=== PATIENT | male | born 1950 | race Caucasian/White ===

== ENCOUNTER 2019-06-04 11:50 | Outpatient (CLI) | payer MEDICARE ==
[2019-06-04 15:11] LABS: INR-International Normal Ratio 1.1; Prothrombin Time 13.7 SEC (12.0-14.7)
[2019-06-04 15:16] LABS: #Eosinphils 0.1 thou/uL (0.0-0.7); #Lymphocytes 2.1 thou/uL (1.20-3.40); #Monocytes 0.8 thou/uL (0.11-0.59); #Neutrophils 6.7 thou/uL (1.40-6.50); %Basophils 0.4 % (0.0-1.0); %Eosinophils 1.2 % (0.0-10.0); %Lymphocytes 21.4 % (21.0-51.0); %Monocytes 8.5 % (0.0-10.0); %Neutrophils 68.5 % (42.0-75.0); Hemoglobin 12.6 g/dL (14.0-18.0); Mean Corpuscular HGB CONC 32.7 g/dL (32.0-36.0); Mean Corpuscular Hemoglobin 30.3 pg (27.0-31.0); Mean Corpuscular Volume 92.7 fL (78.0-98.0); Mean Platelet Volume 6.9 fL (7.4-10.4); Platelet Count 382 thou/uL (130-400); RBC Distribution Width 12.7 % (11.5-14.5); Red Blood Cell (RBC) Count 4.14 mill/uL (4.70-6.10); White Blood Cell (WBC) Count 9.8 thou/uL (4.8-10.8)
[2019-06-04 15:25] LABS: Anion Gap 12 mmol/L (10-20); BUN (Urea Nitrogen) 18 mg/dL (8.4-25.7); Calc. Creatinine Clearance 0 mL/min (70-130); Calcium 9.5 mg/dL (7.8-10.44); Carbon Dioxide 28 mmol/L (23-31); Chloride 87 mmol/L (98-107); Estimated GFR-MDRD 77; Glucose 84 mg/dL (80-115); Potassium 3.9 mmol/L (3.5-5.1); Sodium 123 mmol/L (136-145)
--- NOTE | 2019-06-06 13:40 | EKG ---
Test Reason : Blood Pressure : / mmHG Vent. Rate : 071 BPM Atrial Rate : 071 BPM P-R Int : 176 ms QRS Dur : 088 ms QT Int : 394 ms P-R-T Axes : 059 110 008 degrees QTc Int : 428 ms Sinus rhythm with occasional Premature ventricular complexes Left posterior fascicular block Anterior infarct , age undetermined Abnormal ECG When compared with ECG of 17-MAY-2012 14:18, Left posterior fascicular block is now Present Anterior infarct is now Present T wave inversion now evident in Inferior leads Confirmed by FREIDA MORELOS (2) on 06/06/2019 1:39:51 PM Referred By: JENNIFER Confirmed By:FREIDA MORELOS
== END 2019-06-04 11:51 | disposition home or self-care (01) ==
LOC: LABBT 11:50
PROVIDERS: ATTEND Orthopaedic Surgery
DX: Z01.818 Encounter for other preprocedural examination (principal); T84.011A Broken internal left hip prosthesis, initial encounter
CPT/HCPCS: 80048; 85025; 85610; 87081; 93005; 93010

== ENCOUNTER 2019-06-04 13:30 | Inpatient (IN) | payer MEDICARE ==
[2019-06-07] MEDS ORDERED: Sodium Chloride 0.9% 100 ML ONE (07:35)
[2019-06-07] MEDS ORDERED: Tranexamic Acid 1,000 MG/10 ML VIAL ONE (07:35)
[2019-06-07 08:08] LABS: Bacteria/HPF None Seen HPF (None Seen); Bilirubin Negative (Negative); Blood, Urine Negative (Negative); Clarity Clear (Clear); Glucose, Urine (Dipstick) Normal (Negative); Leukocyte Negative Leu/uL (Negative); Nitrite Negative (Negative); Protein, Urine (Dipstick) 10 mg/dL (Neg-Trace); RBC/HPF 0-3 HPF (0-3); Squamous Epithelial None Seen HPF (0-3); Urobilinogen Normal mg/dL (Less than 2); WBC/HPF 0-3 HPF (0-3)
[2019-06-07 08:09] LABS: Anion Gap 11 mmol/L (10-20); BUN (Urea Nitrogen) 23 mg/dL (8.4-25.7); Calc. Creatinine Clearance 61 mL/min (70-130); Calcium 9.2 mg/dL (7.8-10.44); Carbon Dioxide 27 mmol/L (23-31); Chloride 92 mmol/L (98-107); Estimated GFR-MDRD 61; Glucose 77 mg/dL (80-115); Potassium 3.9 mmol/L (3.5-5.1); Sodium 126 mmol/L (136-145)
[2019-06-07] MEDS ORDERED: Fentanyl 100 MCG/2 ML VIAL SLOW IVP PRN ×2 (08:24)
[2019-06-07] MEDS ORDERED: diphenhydrAMINE 25 MG CAP PO PRN ×2 (08:24→09:30)
[2019-06-07] MEDS ORDERED: Zolpidem Tartrate 5 MG TAB PO PRN ×2 (08:24→09:30)
[2019-06-07] MEDS ORDERED: HYDROcodone/Acetaminophen 10/325 mg Tablet PO PRN ×2 (08:24)
[2019-06-07] MEDS ORDERED: Promethazine HCl 25 MG/ML VIAL IM PRN ×3 (08:24→11:16)
[2019-06-07] MEDS ORDERED: Ondansetron PF 4 MG/2 ML Vial IVP PRN ×2 (08:24→09:30)
[2019-06-07] MEDS ORDERED: Acetaminophen 325 MG TAB PO PRN (08:24)
[2019-06-07] MEDS ORDERED: CEFAZOLIN 2 GM in Premix Bag 1 BAG IVPB SCH (08:30)
[2019-06-07] MEDS ORDERED: Ropivacaine 0.2% HCl/PF 20 ML ONE (08:32)
[2019-06-07] MEDS ORDERED: Fentanyl 100 MCG/2 ML VIAL ONE (08:39)
[2019-06-07] MEDS ORDERED: Acetaminophen 500 MG TAB PO PRN (09:25)
[2019-06-07] MEDS ORDERED: diphenhydrAMINE 50 MG/ML VIAL IVP PRN (09:30)
[2019-06-07] MEDS ORDERED: Naloxone HCl 0.4 mg/ml Vial IVP PRN (09:30)
[2019-06-07] MEDS ORDERED: Naloxone HCl 0.4 mg/ml Vial IV PRN (09:30)
[2019-06-07] MEDS ORDERED: diphenhydrAMINE 50 MG/ML VIAL IM PRN (09:30)
[2019-06-07] MEDS ORDERED: Hydrocerin (Eucerin) Cream 120 gm Jar TOP PRN (09:30)
[2019-06-07] MEDS ORDERED: Bupivacaine 0.25% 10 ML VIAL EPIDURAL PRN (09:30)
[2019-06-07] MEDS ORDERED: HYDROcodone/Acetaminophen 5/325 mg Tablet PO PRN (09:30)
[2019-06-07] MEDS ORDERED: traMADol HCl 50 MG TAB PO PRN ×2 (09:30)
[2019-06-07] MEDS ORDERED: Promethazine HCl 25 MG SUPP PR PRN (09:30)
[2019-06-07] MEDS ORDERED: Tobramycin Sulfate 1.2 GM VIAL ONE (09:39)
[2019-06-07] MEDS ORDERED: Meperidine HCl/PF 25 MG/ML VIAL SLOW IVP PRN (11:16)
[2019-06-07] MEDS ORDERED: HYDROmorphone 2 MG/ML VIAL SLOW IVP PRN (11:16)
[2019-06-07] MEDS ORDERED: Promethazine HCl 25 MG/ML VIAL SLOW IVP PRN (11:16)
[2019-06-07] MEDS ORDERED: HYDROmorphone 2 MG/ML VIAL ONE (11:39)
[2019-06-07] MEDS ORDERED: Ketorolac Tromethamine 30 MG/ML VIAL IVP SCH (12:00)
[2019-06-07] MEDS ORDERED: Heparin 1,000 UNITS/ML VIAL ONE (12:07)
[2019-06-07] MEDS ORDERED: HYDROcodone/Acetaminophen 5/325 mg Tablet ONE (12:33)
[2019-06-07] MEDS ORDERED: Promethazine HCl 25 MG/ML VIAL ONE (12:54)
[2019-06-07] MEDS: Aspirin 81 mg Enteric Coated Tablet PO SCH ×2 (13:14→20:49)
[2019-06-07] MEDS: Ferrous Gluconate 324 MG TAB PO SCH ×2 (13:14→20:49)
[2019-06-07] MEDS: Senokot S 8.6-50 MG TAB PO SCH ×2 (13:14→20:49)
[2019-06-07] MEDS: Lisinopril/Hydrochlorothiazide 20/25 mg Tablet PO SCH (13:14)
[2019-06-07] MEDS: Multivitamin W/ Minerals 1 TAB PO SCH (13:14)
--- NOTE | 2019-06-07 13:19 | RAD ---
Radiograph left hip 3 views: 06/07/2019 HISTORY: 69-year-old male status post left hip arthroplasty revision COMPARISON: 12/13/2018 FINDINGS: The metallic acetabular cup has been removed and replaced with a more lucent structure. Diffuse surro unding sclerosis of the ilium adjacent to this. New femoral head metallic prosthesis connected to a longer stem that reaches the mid diaphysis of the femur. 3 cerclage wires around the proximal subtroc hanteric region of the femur. New finding of subcutaneous emphysema lateral to the proximal femoral shaft and lateral to the hip indicate any recent status of surgery. IMPRESSION: Very recently status post revision of left hip replacement arthroplasty.
[2019-06-07] MEDS: Sodium Chloride 0.9% 1,000 ML IV SCH ×2 (13:50→18:25)
[2019-06-07] MEDS ORDERED: Ketorolac Tromethamine 30 MG/ML VIAL IM SCH (14:00)
[2019-06-07] MEDS ORDERED: Lidocaine 1% PF 5 ML VIAL ONE (14:30)
[2019-06-07] MEDS ORDERED: PROPOFOL 200 MG/20 ML VIAL ONE (14:30)
[2019-06-07] MEDS ORDERED: Dexamethasone 20 MG/5 ML VIAL ONE (14:30)
[2019-06-07] MEDS ORDERED: Glycopyrrolate 0.2 MG/ML 5 ML SYRINGE ONE (14:30)
[2019-06-07] MEDS ORDERED: Ondansetron PF 4 MG/2 ML Vial ONE (14:30)
[2019-06-07] MEDS ORDERED: PHENYLEPHRINE-NS 100 MCG/ML 10 ML SYRINGE ONE (14:30)
[2019-06-07] MEDS ORDERED: Lidocaine 1.5% w/Epi 1:200K 30 ML VIAL (Epid Use) ONE (14:30)
[2019-06-07] MEDS ORDERED: Rocuronium Bromide 10 MG/ML (10ML VIAL) ONE (14:30)
[2019-06-07] MEDS: Ketorolac Tromethamine 30 MG/ML VIAL IVP SCH ×2 (14:39→20:48)
--- NOTE | 2019-06-07 14:39 | OP ---
DATE OF PROCEDURE: 06/07/2019 This is Harrison Morgan PA-C dictating a report for Will Quiñonez MD. 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 POSTOPERATIVE DIAGNOSES: 1. 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 2. Septic periprosthetic arthritis, left hip. PROCEDURE PERFORMED: Revision of total hip arthroplasty, both components for infection. SURGEON: Will Quiñonez MD TURNING MACHINE SET UP OPERATOR: Harrison Morgan PA-C ANESTHESIA: General via endotracheal tube augmented with indwelling epidural. COMPONENTS USED: [employer] OmniFit cemented size 7 long stem with collar, 40 mm +10 offset femoral head, 40 mm in diameter and a Trident crosslink 0- degree fixed-bearing polyethylene insert and three Dall-Miles cables and tobramycin and vancomycin impregnated antibiotic cement. ESTIMATED BLOOD LOSS: 350. FINDINGS: Purulence intracapsular but with intact abductors, loosening of acetabular cup with vertical placement. Approximately 50 mL of intracapsular purulence consistent grossly with acute Staph aureus. DRAINS: None. SPECIMENS: Tissue sent for culture as well as a swab for culture. COMPLICATIONS: None. COUNTS: Correct. INDICATION FOR SURGERY: Gopi is a 69-year-old white male, who has had past surgical history consistent for left total hip arthroplasty approximately [address] Quiñonez. He had done exceptionally well with his prosthetic hip until most recently about 5 to 7 days ago. He presented to the clinic with intense pain, acute onset, but without fevers or constitutional symptoms. Plain radiographs demonstrated change in the version of his acetabular cup and it was elected to take him to surgery urgently for exploration and revision arthroplasty. PROCEDURE IN DETAIL: After informed consent was obtained in the preoperative holding area, the patient was taken to the operative suite. General anesthesia was induced. Once adequate anesthesia was obtained, endotracheal tube was placed and secured. He was then positioned appropriately in the right lateral decubitus position and the left lower extremity was then prepped and draped in usual sterile fashion. Prior to incision, a multidisciplinary time-out was called. After this, a longitudinal incision was made using the patient's old incision, which had been demarcated well. We extended this approximately 3 fingerbreadths inferiorly and 2 fingerbreadths proximally. The IT band was encountered, incised sharply. Local bleeding was controlled with electrocautery. The abductors were identified and appeared to be intact and fully healed. We then used a modified lateral approach reflecting the abductor muscles anteriorly. Extracapsular submuscular dissection was carried out down to the capsule. The capsule was then incised with Bovie electrocautery. We encountered gross purulence medially under pressure. At that time, the capsule was then suctioned out. Both tissue specimens were taken and a culture swab was also taken. Our intentions then turned towards revision arthroplasty of both the acetabular cup and the femoral stem. Further reflection of the abductors was carried out. Then, full capsulectomy and full synovectomy were taken down both anterior and posterior and medially. The femoral head was removed with a GEMOLOGIST punch and we then turned our attention to ex-cavitation of the acetabular cup, which came out easily and was on a bed of pus. There was no erosion through the acetabulum that did not extend into the pelvis. Attention was then turned, copious irrigation with pulsatile lavage was carried out in the acetabular cavity and vault. This was explored with curettage and we used a 57 mm reamer to upsize by 1 mm circumferentially. We then turned our attention to femoral preparation. A trochanteric osteotomy was carried out to allow for access to the calcar. We then used a series of straight and flexible osteotomes to recess the calcar fit, in which bony ingrowth was noted to be secured and there was no purulence identified. We then used a femoral implant and director learning services to mallet out the existing femoral implant. Copious irrigation and reaming were carried up sequentially in the femoral canal and preparation was taken with care. We then used 3 Dall-Miles cables to resecure the trochanteric osteotomy and trialed with a size 7 collared stem. We were happy with our fit and finish and drawer and shuck. We then elected to proceed with permanent femoral placement. A size 7 was then malleted into place with copious antibiotic impregnated cement around the calcar and collar. We left a little bit proud as our trialing had revealed would be a best fit. We used a +10 femoral neck offset. This was quite good for fit and finish and appeared to be near anatomic in the operative suite both with shuck and gross measurement in the flexed knee position. The hip was then relocated with good night's clunk and copious irrigation was carried out. Primary closure of the abductors was accomplished with interrupted [id number] #2 Vicryl. The IT band was then resecured with running #2 Quill stitch and interrupted #2 Vicryl. Subcutaneous layer was closed with a running 0 Quill stitch and we used a running 2-0 nylon Prolene stitch for skin closure. Sterile dressing was applied. The procedure was terminated without any complications. The patient was extubated in the operative suite and taken to recovery room in stable condition. Leg lengths were near anatomic by measurement in the supine position. Job ID: [id number] [facility]
[2019-06-07] MEDS: cefTRIAXone\\ROCEPHIN 2 GM in Sodium Chloride 0.9% 100 ML IVPB SCH (16:16)
[2019-06-07] MEDS: CEFAZOLIN 2 GM in Premix Bag 1 BAG IVPB SCH (16:55)
[2019-06-07] MEDS ORDERED: hydrALAZINE 20 MG/ML VIAL SLOW IVP PRN (18:06)
--- NOTE | 2019-06-07 18:25 | CON ---
DATE OF CONSULTATION: PRIMARY CARE PROVIDER: Dr. Kierra Danielle. CHIEF COMPLAINT: Management of medical comorbidities. HISTORY OF PRESENT ILLNESS: Mr. Payne is a pleasant 69-year-old gentleman, who was seen at [facility] on 06/07/2019. Earlier today, he underwent left hip surgery. Hospitalist Service has been consulted for management of medical comorbidities. He had denies any chest pain or shortness of breath. He denies any fevers or chills. He denies any nausea or vomiting. He denies any abdominal pain. REVIEW OF SYSTEMS: All systems reviewed and found to be negative except for the pertinent positives mentioned above. PAST MEDICAL HISTORY: Significant for hypertension, coronary artery disease, tobacco abuse, MRSA infection in the left wrist. PAST SURGICAL HISTORY: Hip surgery in the past, left hip revision arthroplasty today. SOCIAL HISTORY: The patient smokes 1 pack of cigarettes a day. He drinks alcohol on a daily basis. He also has a history of recreational drug use. ALLERGIES: NONE. CURRENT MEDICATIONS: 1. Lisinopril/hydrochlorothiazide 20/25 mg daily. 2. Naproxen p.r.n. FAMILY HISTORY: No family history of premature coronary artery disease. PHYSICAL EXAMINATION: GENERAL: Mr. Payne is awake and alert, not in acute distress. VITAL SIGNS: Blood pressure is 122/74, pulse 69, respiratory rate 18, and oxygen saturation 95% on room air. He is afebrile. EYES: No scleral icterus, no conjunctival pallor. ENT: Moist mucosal membranes. No oropharyngeal erythema or exudates. NECK: Supple, nontender, trachea is midline. RESPIRATORY: Accessory muscles of breathing are not active. Chest wall movements are symmetric bilaterally. Lungs are clear to auscultation without wheeze, rhonchi, or crepitations. CARDIOVASCULAR: S1 and S2 are heard, regular. NEUROLOGIC: Cranial nerves 2 through 12 are intact. MUSCULOSKELETAL: Status post left hip surgery. SKIN: No rashes. LYMPHATIC: No cervical lymphadenopathy. PSYCHIATRIC: Normal mood, normal affect. The patient is oriented to person, place, and time. LABORATORY DATA: Mr. Payne's labs and investigations were reviewed. He is hyponatremic with a sodium of 126. His last known sodium was 123 on 2019. He has been hyponatremic in the past as well. Potassium is normal. Creatinine is normal. Urinalysis is negative for nitrite and leukocyte esterase. ASSESSMENT AND PLAN: Mr. Payne is a pleasant 69-year-old gentleman, who was seen at [facility] on 06/07/2019. His problem list includes: 1. Hypertension: Resume lisinopril/hydrochlorothiazide, monitor vital signs and titrate antihypertensives as needed. Add p.r.n. IV hydralazine. 2. Coronary artery disease: This appears to be stable. 3. Tobacco abuse: The patient counseled regarding tobacco cessation. LEVEL OF COMPLEXITY: Moderate. LEVEL OF COMPLEXITY: Moderate. Many thanks for allowing me to participate in your patient's care. Please feel free to contact me with any questions or concerns. Job ID: [id number] [facility]
--- NOTE | 2019-06-07 21:22 | CON ---
DATE OF CONSULTATION: 06/07/2019 REASON FOR CONSULTATION: Left total hip arthroplasty infection. HISTORY OF PRESENT ILLNESS: A 69-year-old patient with history of chronic smoking and alcohol abuse in the past, but not currently and a left hip replacement many years ago, who developed worsening pain and was diagnosed with loosening and failure of the hip arthroplasty. So, Dr. Quiñonez did an intervention today. The operative report was reviewed. There was gross purulence medially within the capsule under pressure. Cultures were submitted. There was full capsulectomy, synovectomy, the femoral head removed, the acetabular cup was removed. No erosion was noticed and the stem was removed as well. An articulated spacer was placed with antibiotic cement solution and the patient now is in the 1st postop day, he is eating lunch. He does not appear in distress. No headaches, visual symptoms, sore throat, odynophagia, or dysphagia. No dyspnea or chest pain. No abdominal pain. He still has a Addison catheter in place. No neurological symptoms. PAST MEDICAL HISTORY: Prior left hip replacement, alcohol dependency syndrome, chronic smoking, hypertension, skin cancer removal. SOCIAL HISTORY: Lives in [place]. Retired. Current smoker. Quit drinking about 2 months before admission. ALLERGIES: NONE. FAMILY HISTORY: Noncontributory. CURRENT MEDICATIONS: P.r.n. medications: 1. Cefazolin. 2. Fentanyl. 3. Fergon. 4. Prinzide. 5. Toradol. 6. Drumright. 7. Zofran. 8. Phenergan. 9. Ultram. 10. Zolpidem. PHYSICAL EXAMINATION: VITAL SIGNS: T-max 97, BP 114/68, pulse 55, respirations 18, O2 saturation 100. SKIN: With the surgical site, no major abnormalities noted. Addison catheter in place. Peripheral IV access. HEENT: Ocular movements conjugate. Sclerae white. Pupils are equal. Oral cavity normal. LUNGS: Clear, S1-S2 regular rate. ABDOMEN: Soft, not distended or tender. No ascites. No bladder distention. No joint inflammatory activity. Cognitive function appears to be intact. LABORATORY DATA: White cell count 9.8, hemoglobin 12.6, platelets 382 with normal differential. Serum potassium 3.4, creatinine 1.19, glucose 77. Hemoglobin A1c 5.9. Liver profile normal. Urinalysis was fairly normal and we have the samples with negative gram stain for organisms. Cultures are too young to call, few wbcs were seen. ASSESSMENT: Failure of left hip arthroplasty with evidence of inflammatory process. The patient will be started on Rocephin. The usual culprits including Staphylococcus aureus, gram-negative rods, streptococci are expected in this situation. Cutibacterium (the old Propionibact.) is another possibility. The patient will likely need a peripherally inserted central catheter line placement and protracted IV therapy administration. Job ID: [id number] [facility]
[2019-06-08] MEDS ORDERED: Sodium Chloride 0.9% 500 ML IV SCH (00:45)
[2019-06-08] MEDS: CEFAZOLIN 2 GM in Premix Bag 1 BAG IVPB SCH (00:50)
[2019-06-08] MEDS: Ketorolac Tromethamine 30 MG/ML VIAL IVP SCH ×4 (01:52→20:13)
[2019-06-08 05:08] LABS: Hemoglobin 9.6 g/dL (14.0-18.0); Mean Corpuscular HGB CONC 33.2 g/dL (32.0-36.0); Mean Corpuscular Hemoglobin 30.5 pg (27.0-31.0); Mean Corpuscular Volume 92.1 fL (78.0-98.0); Mean Platelet Volume 6.8 fL (7.4-10.4); Platelet Count 256 thou/uL (130-400); RBC Distribution Width 12.5 % (11.5-14.5); Red Blood Cell (RBC) Count 3.13 mill/uL (4.70-6.10); White Blood Cell (WBC) Count 8.3 thou/uL (4.8-10.8)
[2019-06-08] MEDS: Sodium Chloride 0.9% 1,000 ML IV SCH ×2 (06:31→13:51)
[2019-06-08] MEDS: Ferrous Gluconate 324 MG TAB PO SCH ×2 (09:13→20:13)
[2019-06-08] MEDS: Senokot S 8.6-50 MG TAB PO SCH ×2 (09:13→20:13)
[2019-06-08] MEDS: Multivitamin W/ Minerals 1 TAB PO SCH (09:13)
[2019-06-08] MEDS: Aspirin 81 mg Enteric Coated Tablet PO SCH ×2 (09:14→20:13)
[2019-06-08] MEDS: Lisinopril/Hydrochlorothiazide 20/25 mg Tablet PO SCH (09:30)
[2019-06-08] MEDS: Vancomycin 1.5 GRAM/300 ML BAG 1.5 GM in Premix Bag 1 BAG IVPB SCH (10:23)
--- NOTE | 2019-06-08 11:42 | SPC ---
Left upper extremity PICC sonographic guided HISTORY: Hip infection. FINDINGS: After explaining the procedure and answering all questions, left upper extremity was preppe d and draped in usual sterile fashion. Sterile technique, buffered local anesthesia, sonographic guidance, and a 22-gauge needle were used to carefully access the left basilic vein. Standard technASP64 ue was used to place the tip of a 5 Amharic single lumen PICC so that the tip lies at the level of the cavoatrial junction. Catheter was flushed and secured externally. Patient tolerated the procedure well and was returned in unchanged condition. Fluoroscopy time 0 seconds IMPRESSION: Left upper extremity PICC is ready for use.
[2019-06-08 13:08] LABS: Anion Gap 8 mmol/L (10-20); BUN (Urea Nitrogen) 21 mg/dL (8.4-25.7); Calc. Creatinine Clearance 67 mL/min (70-130); Calcium 7.9 mg/dL (7.8-10.44); Carbon Dioxide 26 mmol/L (23-31); Chloride 96 mmol/L (98-107); Estimated GFR-MDRD 68; Glucose 92 mg/dL (80-115); Potassium 4.5 mmol/L (3.5-5.1); Sodium 125 mmol/L (136-145)
[2019-06-08] MEDS: cefTRIAXone\\ROCEPHIN 2 GM in Sodium Chloride 0.9% 100 ML IVPB SCH (15:10)
[2019-06-08] MEDS ORDERED: Diazepam 5 MG TAB PO PRN (17:11)
[2019-06-08] MEDS ORDERED: Thiamine HCl 200 MG/2 ML VIAL IM SCH (17:15)
[2019-06-08] MEDS ORDERED: Diazepam 5 MG TAB PO SCH (17:15)
--- NOTE | 2019-06-08 19:24 | PDOC.HOSPP ---
- Subjective Encounter Date: 06/08/19 Encounter Time: 08:00 Subjective: Pt seen for followup re: hypertension. No complaints today. - Objective Vital Signs & Weight: Vital Signs (12 hours) Temp Pulse Resp BP Pulse Ox 06/08/19 15:33 98.4 F 82 16 116/65 92 L 06/08/19 12:15 98.3 F 70 16 118/55 L 96 06/08/19 09:30 71 Weight Weight 160 lb I&O: 06/07/19 06/08/19 06/09/19 06:59 06:59 06:59 Intake Total 2049 1999 Output Total 500 1850 Balance 1550 150 Result Diagrams: 06/08/19 04:51 06/08/19 12:13 Additional Labs: Labs and MARs reviewed by co Hospitalist ROS - Review of Systems Respiratory: denies: cough, shortness of breath, SOB with excertion, pleuritic pain, wheezing Cardiovascular: denies: chest pain, palpitations, orthopnea, paroxysmal noc. dyspnea, edema, light headedness - Medication Medications: Active Medications Generic Name Dose Route Start Last Admin Trade Name Freq PRN Reason Stop Dose Admin Aspirin 81 mg 06/07/19 09:00 06/08/19 09:14 Ecotrin PO 81 mg BID PASTOR Administration Ferrous Gluconate 324 mg 06/07/19 09:00 06/08/19 09:13 Fergon PO 324 mg BID PASTOR Administration Lisinopril/HCTZ 1 tab 06/07/19 09:00 06/08/19 09:30 Prinizide 20-25 PO Not Given DAILY PASTOR Sodium Chloride 1,000 mls @ 100 mls/hr 06/07/19 08:30 06/08/19 13:51 Normal Saline 0.9% IV 1,000 mls .Q10H PASTOR Administration Ceftriaxone Sodium 2 gm/ 100 mls @ 200 mls/hr 06/07/19 16:00 06/08/19 15:10 Sodium Chloride IVPB 100 mls 1600 PASTOR Administration Vancomycin HCl 1.5 gm/ Device 300 mls @ 200 mls/hr 06/08/19 10:00 06/08/19 10 :23 IVPB 300 mls 1000 PASTOR Administration Iron/Minerals/Multivitamins 1 tab 06/07/19 09:00 06/08/19 09:13 Theragran M PO 1 tab DAILY PASTOR Administration Ketorolac Tromethamine 15 mg 06/07/19 14:00 06/08/19 13:47 Toradol IVP 06/09/19 08:01 15 mg 0200,0800,1400,2000 PASTOR Administration Senna/Docusate Sodium 2 tab 06/07/19 09:00 06/08/19 09:13 Senokot S PO 2 tab BID PASTOR Administration - Exam General Appearance: awake alert Eye: anicteric sclera ENT: moist mucosa Neck: supple Heart: RRR Respiratory: CTAB, no rales Gastrointestinal: soft, non-tender Musculoskeletal - other findings: s/p L hip surgery Psychiatric: normal affect, normal behavior Hosp A/P (1) Hypertension Code(s): I10 - ESSENTIAL (PRIMARY) HYPERTENSION Status: Chronic (2) CAD (coronary artery disease) Code(s): I25.10 - ATHSCL HEART DISEASE OF [place] CORONARY ARTERY W/O ANG PCTRS Status: Chronic - Plan HTN controlled. CAD stable. Pt reportedly uses alcohol daily, start ASE protocol. s/p L hip revision surgery. DVT prophylaxis and pain management per orthopedic surgery service.
[2019-06-08] MEDS: HYDROcodone/Acetaminophen 5/325 mg Tablet PO PRN (19:32)
[2019-06-09] MEDS: Ketorolac Tromethamine 30 MG/ML VIAL IVP SCH ×2 (02:27→08:05)
[2019-06-09] MEDS: Sodium Chloride 0.9% 1,000 ML IV SCH ×3 (02:28→23:07)
[2019-06-09] MEDS ORDERED: Diazepam 5 MG TAB PO PRN (04:00)
[2019-06-09 05:12] LABS: Hemoglobin 9.9 g/dL (14.0-18.0); Mean Corpuscular HGB CONC 33.2 g/dL (32.0-36.0); Mean Corpuscular Hemoglobin 30.2 pg (27.0-31.0); Mean Corpuscular Volume 91.1 fL (78.0-98.0); Platelet Count 260 thou/uL (130-400); RBC Distribution Width 12.4 % (11.5-14.5); Red Blood Cell (RBC) Count 3.26 mill/uL (4.70-6.10); White Blood Cell (WBC) Count 8.8 thou/uL (4.8-10.8)
[2019-06-09] MEDS: HYDROcodone/Acetaminophen 5/325 mg Tablet PO PRN ×2 (08:02→19:51)
[2019-06-09] MEDS: Magnesium Oxide 400 MG TAB PO SCH (08:03)
[2019-06-09] MEDS: Aspirin 81 mg Enteric Coated Tablet PO SCH ×2 (08:03→19:52)
[2019-06-09] MEDS: Ferrous Gluconate 324 MG TAB PO SCH ×2 (08:04→19:51)
[2019-06-09] MEDS: Lisinopril/Hydrochlorothiazide 20/25 mg Tablet PO SCH (08:04)
[2019-06-09] MEDS: Thiamine 100 MG TAB PO SCH (08:04)
[2019-06-09] MEDS: Folic Acid 1 MG TAB PO SCH (08:04)
[2019-06-09] MEDS: Senokot S 8.6-50 MG TAB PO SCH ×2 (08:04→19:52)
[2019-06-09] MEDS: Multivitamin W/ Minerals 1 TAB PO SCH ×2 (08:04→10:13)
[2019-06-09 09:17] LABS: Vancomycin, Trough 9.8 ug/mL
--- NOTE | 2019-06-09 09:32 | PRG ---
DATE OF SERVICE: 06/09/2019 SUBJECTIVE: Gopi is a 69-year-old male, postoperative day 2 from a revision left total hip arthroplasty for septic periprosthetic arthritis. Cultures are still pending at this time. No growth at 48 hours. No organisms identified on Gram stain. Subjectively, he still has some discomfort from his trochanteric osteotomy. He has been unable to ambulate, but he has stood at the bedside. OBJECTIVE: VITAL SIGNS: Temperature 98.4, pulse 83, respiratory rate 18, blood pressure is 144/75. GENERAL: He is alert, oriented, responsive, appropriate to examiner. Nonfocal. EXTREMITIES: Incision is clean. No gross strike through was identified. No erythema is noted. He does internally rotate in the left lower extremity, but I can externally rotate his limb without any difficulty. He does not appear to be shortened or no leg length discrepancy noted. LABORATORY DATA: Hemoglobin and hematocrit 9.9 and 29.7 and white blood cell count 8.8. IMPRESSION: A 69-year-old male, postoperative day 2, revision left total hip arthroplasty secondary to pyogenic arthritis. PLAN: Continue current care. Follow with cultures for identification of organism and continue to follow. Job ID: [id number]
[2019-06-09] MEDS: Vancomycin HCl 1 GM in Premix Bag 1 BAG IVPB SCH ×2 (10:22→19:52)
[2019-06-09] MEDS: Vancomycin 1.5 GRAM/300 ML BAG 1.5 GM in Premix Bag 1 BAG IVPB SCH (11:40)
[2019-06-09] MEDS ORDERED: Polyethylene Glycol 3350 17 GM Packet PO PRN (12:31)
--- NOTE | 2019-06-09 12:34 | PDOC.HOSPP ---
- Subjective Encounter Date: 06/09/19 Encounter Time: 12:32 Subjective: The patient states pain in his left leg is controlled however has pain when lifting it up and is unable to walk yet. He has been in the chair. He reports no bowel movement since admission. - Objective Vital Signs & Weight: Vital Signs (12 hours) Temp Pulse Resp BP BP BP BP 06/09/19 10:55 98.2 F 61 16 129/72 06/09/19 08:04 83 144/75 H 06/09/19 08:00 06/09/19 07:31 98.4 F 83 18 144/75 H 06/09/19 03:40 98.3 F 73 16 129/77 Pulse Ox 06/09/19 10:55 95 06/09/19 08:04 06/09/19 08:00 93 L 06/09/19 07:31 92 L 06/09/19 03:40 95 Weight Weight 160 lb I&O: 06/08/19 06/09/19 06/10/19 06:59 06:59 06:59 Intake Total 0 2240 Output Total 500 3600 Balance 1550 -1360 Result Diagrams: 06/09/19 03:02 06/08/19 12:13 Hospitalist ROS - Review of Systems Constitutional: denies: fever, chills - Medication Medications: Active Medications Generic Name Dose Route Start Last Admin Trade Name Freq PRN Reason Stop Dose Admin Hydrocodone Bitart/Acetaminophen 2 tab 06/07/19 09:30 06/09/19 08:02 [place] 5/325 PO 2 tab Q4H PRN Administration For Moderate Pain 4-6 Aspirin 81 mg 06/07/19 09:00 06/09/19 08:03 Ecotrin PO 81 mg BID PASTOR Administration Ferrous Gluconate 324 mg 06/07/19 09:00 06/09/19 08:04 Fergon PO 324 mg BID PASTOR Administration Folic Acid 1 mg 06/09/19 09:00 06/09/19 08:04 Folvite PO 1 mg DAILY PASTOR Administration Lisinopril/HCTZ 1 tab 06/07/19 09:00 06/09/19 08:04 Prinizide 20-25 PO 1 tab DAILY PASTOR Administration Sodium Chloride 1,000 mls @ 100 mls/hr 06/07/19 08:30 06/09/19 11:40 Normal Saline 0.9% IV Not Given .Q10H PASTOR Ceftriaxone Sodium 2 gm/ 100 mls @ 200 mls/hr 06/07/19 16:00 06/08/19 15:10 Sodium Chloride IVPB 100 mls 1600 PASTOR Administration Vancomycin HCl 1 gm/ Device 200 mls @ 200 mls/hr 06/09/19 10:00 06/09/19 10: 22 IVPB 200 mls 1000,2000 PASTOR Administration Iron/Minerals/Multivitamins 1 tab 06/07/19 09:00 06/09/19 08:04 Theragran M PO 1 tab DAILY PASTOR Administration Iron/Minerals/Multivitamins 1 tab 06/09/19 09:00 06/09/19 10:13 Theragran M PO Not Given DAILY PASTOR Magnesium Oxide 400 mg 06/09/19 09:00 06/09/19 08:03 Magnesium Oxide PO 400 mg DAILY PASTOR Administration Senna/Docusate Sodium 2 tab 06/07/19 09:00 06/09/19 08:04 Senokot S PO 2 tab BID PASTOR Administration Thiamine HCl 100 mg 06/09/19 09:00 06/09/19 08:04 Thiamine PO 100 mg DAILY PASTOR Administration - Exam General Appearance: NAD, awake alert Eye: PERRL, anicteric sclera ENT: normocephalic atraumatic, no oropharyngeal lesions Neck: supple, symmetric, no JVD, no thyromegaly Heart: RRR, no murmur, no gallops, no rubs Respiratory: CTAB, no wheezes, no rales, no ronchi Gastrointestinal: soft, non-tender, non-distended, normal bowel sounds Extremities: no cyanosis, no clubbing, no edema Skin: normal turgor, no lesions, no rashes Neurological - other findings: left hip tenderness and fullness. Unable to lift up left leg Hosp A/P (1) CAD (coronary artery disease) Code(s): I25.10 - ATHSCL HEART DISEASE OF [place] CORONARY ARTERY W/O ANG PCTRS Status: Chronic (2) Hypertension Code(s): I10 - ESSENTIAL (PRIMARY) HYPERTENSION Status: Chronic (3) Septic arthritis Status: Acute (4) Failed total hip arthroplasty Code(s): T84.018A - BROKEN INTERNAL JOINT PROSTHESIS, OTHER SITE, INIT ENCNTR; Z96.649 - PRESENCE OF UNSPECIFIED ARTIFICIAL HIP JOINT Status: Acute (5) History of revision of total hip arthroplasty Code(s): Z96.649 - PRESENCE OF UNSPECIFIED ARTIFICIAL HIP JOINT Status: Acute (6) Anemia Code(s): D64.9 - ANEMIA, UNSPECIFIED Status: Acute (7) Hyponatremia Code(s): E87.1 - HYPO-OSMOLALITY AND HYPONATREMIA Status: Acute - Plan This is 69 year old male with failed left hip arthroplasty who is POD 2 for septic arthritis of left hip s/p revision of left hip arthroplasty Septic arthritis s/p revision of left hip arthroplasty - care per orthopedic - PT/OT - on fentanyl [employer]ESS[employer] - added miralax for bowel regimen - antibiotics per infectious disease. Currently on IV vancomycin and ceftriaxone. Cultures are preliminarily negative Hyponatremia - sodium down to 125. BP okay at 144. Will stop hydrochlorothiazide, continue IV fluids Anemia - Hb 9. will check B12/folate/TSH in am
[2019-06-09] MEDS: Fentanyl 5 mcg/Bup 0.075% Cadd 100 ML EPIDURAL SCH (15:58)
[2019-06-09] MEDS: cefTRIAXone\\ROCEPHIN 2 GM in Sodium Chloride 0.9% 100 ML IVPB SCH (15:59)
[2019-06-10] MEDS: HYDROcodone/Acetaminophen 5/325 mg Tablet PO PRN ×4 (01:36→20:57)
[2019-06-10 04:28] LABS: Hemoglobin 10.4 g/dL (14.0-18.0); Mean Corpuscular HGB CONC 32.7 g/dL (32.0-36.0); Mean Corpuscular Hemoglobin 29.8 pg (27.0-31.0); Mean Corpuscular Volume 91.2 fL (78.0-98.0); Mean Platelet Volume 7.3 fL (7.4-10.4); Platelet Count 270 thou/uL (130-400); RBC Distribution Width 12.4 % (11.5-14.5); Red Blood Cell (RBC) Count 3.48 mill/uL (4.70-6.10); White Blood Cell (WBC) Count 10.5 thou/uL (4.8-10.8)
[2019-06-10 04:50] LABS: Iron 12 ug/dL (65-175); Iron Binding Capacity, Total 195 mcg/dL (261-462)
[2019-06-10 05:12] LABS: Ferritin 172.55 ng/mL (22-322); Thyroid Stimulating Hormone 3.313 uIU/mL (0.35-4.94)
[2019-06-10] MEDS: Sodium Chloride 0.9% 1,000 ML IV SCH ×2 (06:07→16:46)
[2019-06-10] MEDS: Aspirin 81 mg Enteric Coated Tablet PO SCH ×2 (09:22→20:56)
[2019-06-10] MEDS: Multivitamin W/ Minerals 1 TAB PO SCH ×2 (09:22→09:27)
[2019-06-10] MEDS: Senokot S 8.6-50 MG TAB PO SCH ×2 (09:22→20:56)
[2019-06-10] MEDS: Vancomycin HCl 1 GM in Premix Bag 1 BAG IVPB SCH (09:22)
[2019-06-10] MEDS: Lisinopril 5 MG TAB PO SCH (09:23)
[2019-06-10] MEDS: Thiamine 100 MG TAB PO SCH (09:23)
[2019-06-10] MEDS: Folic Acid 1 MG TAB PO SCH (09:23)
[2019-06-10] MEDS: Magnesium Oxide 400 MG TAB PO SCH (09:23)
[2019-06-10] MEDS: Ferrous Gluconate 324 MG TAB PO SCH ×2 (09:23→20:56)
[2019-06-10 09:56] LABS: Anion Gap 10 mmol/L (10-20); BUN (Urea Nitrogen) 13 mg/dL (8.4-25.7); Calc. Creatinine Clearance 87 mL/min (70-130); Calcium 8.5 mg/dL (7.8-10.44); Carbon Dioxide 29 mmol/L (23-31); Chloride 90 mmol/L (98-107); Estimated GFR-MDRD Greater than 90; Glucose 113 mg/dL (80-115); Potassium 3.9 mmol/L (3.5-5.1); Sodium 125 mmol/L (136-145)
--- NOTE | 2019-06-10 10:41 | PRG ---
DATE OF SERVICE: 06/10/2019 SUBJECTIVE: Gopi is now postop day 4 from revision left total hip arthroplasty secondary to infection. At this point, cultures still have no growth, and Gram stain showed no organisms. However, his gross purulence and watery like discharge at the time of surgery is profoundly infected. OBJECTIVE: GENERAL: On exam, the patient is sitting up, he is sleeping currently, resting well, breathing without any labor. VITAL SIGNS: Temperature 98.3, pulse 75, respiratory rate is 18, nonlabored. EXTREMITIES: There is no strike through. No drainage. No shortening or external rotation of the left hip. LABORATORY DATA: Hemoglobin and hematocrit 10.4 and 31.8 and white blood cell count 10.5. IMPRESSION: A 69-year-old male, postop day 4 left total hip arthroplasty revision for septic arthritis. PLAN: Continue current care. Recheck tomorrow. Job ID: [id number]
--- NOTE | 2019-06-10 12:57 | PDOC.HOSPP ---
- Subjective Encounter Date: 06/10/19 Encounter Time: 12:00 Subjective: The patient is doing better. He says his left hip pain is still moderate to severe. No other complaints. No chest pain, shortness of breath, nausea, vomiting - Objective Vital Signs & Weight: Vital Signs (12 hours) Temp Pulse Pulse Pulse Resp BP BP 06/10/19 11:12 97.5 F L 63 20 06/10/19 08:26 75 75 104/65 124/75 06/10/19 07:17 98.3 F 68 18 06/10/19 03:46 97.8 F 67 16 BP BP Pulse Ox 06/10/19 11:12 126/81 95 06/10/19 08:26 06/10/19 07:17 154/85 H 95 06/10/19 03:46 127/83 96 Weight Weight 160 lb I&O: 06/09/19 06/10/19 06/11/19 06:59 06:59 06:59 Intake Total 2240 1800 Output Total 3600 3550 Balance -1360 -1750 Result Diagrams: 06/10/19 04:00 06/10/19 09:18 Hospitalist ROS - Review of Systems Constitutional: denies: fever, chills - Medication Medications: Active Medications Generic Name Dose Route Start Last Admin Trade Name Freq PRN Reason Stop Dose Admin Hydrocodone Bitart/Acetaminophen 2 tab 06/07/19 09:30 06/10/19 07:46 [place] 5/325 PO 2 tab Q4H PRN Administration For Moderate Pain 4-6 Aspirin 81 mg 06/07/19 09:00 06/10/19 09:22 Ecotrin PO 81 mg BID PASTOR Administration Ferrous Gluconate 324 mg 06/07/19 09:00 06/10/19 09:23 Fergon PO 324 mg BID PASTOR Administration Folic Acid 1 mg 06/09/19 09:00 06/10/19 09:23 Folvite PO 1 mg DAILY PASTOR Administration Sodium Chloride 1,000 mls @ 100 mls/hr 06/07/19 08:30 06/10/19 06:07 Normal Saline 0.9% IV Not Given .Q10H PASTOR Fentanyl Citrate 100 mls @ 4 mls/hr 06/07/19 09:30 06/09/19 15:58 Fentanyl/Bupivacaine EPIDURAL 100 mls INF PASTOR Administration As Directed Ceftriaxone Sodium 2 gm/ 100 mls @ 200 mls/hr 06/07/19 16:00 06/09/19 15:59 Sodium Chloride IVPB 100 mls 1600 PASTOR Administration Vancomycin HCl 1 gm/ Device 200 mls @ 200 mls/hr 06/09/19 10:00 06/10/19 09: 22 IVPB 200 mls 1000,2000 PASTOR Administration Iron/Minerals/Multivitamins 1 tab 06/07/19 09:00 06/10/19 09:22 Theragran M PO 1 tab DAILY PASTOR Administration Iron/Minerals/Multivitamins 1 tab 06/09/19 09:00 06/10/19 09:27 Theragran M PO Not Given DAILY PASTOR Lisinopril 5 mg 06/10/19 09:00 06/10/19 09:23 Zestril PO 5 mg DAILY PASTOR Administration Magnesium Oxide 400 mg 06/09/19 09:00 06/10/19 09:23 Magnesium Oxide PO 400 mg DAILY PASTOR Administration Senna/Docusate Sodium 2 tab 06/07/19 09:00 06/10/19 09:22 Senokot S PO 2 tab BID PASTOR Administration Thiamine HCl 100 mg 06/09/19 09:00 06/10/19 09:23 Thiamine PO 100 mg DAILY PASTOR Administration - Exam General Appearance: NAD, awake alert Eye: PERRL, anicteric sclera Neck: supple, no JVD Heart: RRR, no murmur, no gallops, no rubs Respiratory: CTAB, no wheezes, no rales, no ronchi Gastrointestinal: soft, non-tender, non-distended, normal bowel sounds Extremities - other findings: decreased range of motion left leg with tenderness of the left hip Skin: normal turgor, no lesions, no rashes Neurological: cranial nerve grossly intact, normal sensation to touch Musculoskeletal: normal tone, normal strength, no muscle wasting Hosp A/P (1) CAD (coronary artery disease) Code(s): I25.10 - ATHSCL HEART DISEASE OF [place] CORONARY ARTERY W/O ANG PCTRS Status: Chronic (2) Hypertension Code(s): I10 - ESSENTIAL (PRIMARY) HYPERTENSION Status: Chronic (3) Septic arthritis Status: Acute (4) Failed total hip arthroplasty Code(s): T84.018A - BROKEN INTERNAL JOINT PROSTHESIS, OTHER SITE, INIT ENCNTR; Z96.649 - PRESENCE OF UNSPECIFIED ARTIFICIAL HIP JOINT Status: Acute (5) History of revision of total hip arthroplasty Code(s): Z96.649 - PRESENCE OF UNSPECIFIED ARTIFICIAL HIP JOINT Status: Acute (6) Anemia Code(s): D64.9 - ANEMIA, UNSPECIFIED Status: Acute (7) Hyponatremia Code(s): E87.1 - HYPO-OSMOLALITY AND HYPONATREMIA Status: Acute - Plan This is 69 year 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 Currently on IV vancomycin and ceftriaxone. Cultures are negative so far Hyponatremia - sodium down to 125. Discontinued HCTZ/lisinopril - seems asymptomatic. Will check serum and urine osmolarity and urine sodium - TSH normal Hypertension - BP 150's today, switch to lisinopril 5 mg daily Anemia of chronic disease - Hb 9. B12, folate, TSH unremarkable - ferritin normal, but low iron sat - he is on folic acid
--- NOTE | 2019-06-10 13:53 | PRG ---
DATE OF SERVICE: 06/10/2019 SUBJECTIVE: Mr. Payne is feeling better with still quite a bit of left hip pain. No respiratory symptoms or abdominal pain. No diarrhea. He is voiding still with an indwelling catheter. His I's and O's are negative for the past few days. OBJECTIVE: VITAL SIGNS: With a normal temperature, BP 120/80, pulse 63, respirations 20. HEENT: Normal. HEART: Normal heart sounds. S1 and S2 without murmurs. LUNGS: Clear to auscultation and percussion. ABDOMEN: Soft, not distended or tender. The surgical site appears normal. There are no drains. LABORATORY DATA: White cell count 10.5, hemoglobin 10.4, platelets 270. Sodium 125, creatinine 0.83. 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 Negative cultures still. Methicillin-resistant Staphylococcus aureus/Staphylococcus aureus appears less likely in view of negative cultures. A slow growing organism of lesser pathogenicity is considered including possibility of nutritionally variant streptococci and Propionibacterium species. We will continue Rocephin, PICC line placement, protracted IV therapy administration, transition to suppressive doxycycline after completion of 6 weeks of therapy. Job ID: [id number]
[2019-06-10] MEDS: Lidocaine 5% Patch TD SCH (14:34)
[2019-06-10] MEDS: cefTRIAXone\\ROCEPHIN 2 GM in Sodium Chloride 0.9% 100 ML IVPB SCH (15:37)
[2019-06-10] MEDS: Fentanyl 5 mcg/Bup 0.075% Cadd 100 ML EPIDURAL SCH (16:31)
[2019-06-10 19:23] LABS: Vancomycin, Trough 20.3 ug/mL
[2019-06-11] MEDS: HYDROcodone/Acetaminophen 5/325 mg Tablet PO PRN ×6 (03:04→22:46)
[2019-06-11] MEDS: Lidocaine Patch Removal 1 EACH TOP SCH (03:05)
[2019-06-11] MEDS: Sodium Chloride 0.9% 1,000 ML IV SCH ×2 (04:42→08:21)
[2019-06-11 05:08] LABS: Hemoglobin 10.5 g/dL (14.0-18.0); Mean Corpuscular HGB CONC 33.8 g/dL (32.0-36.0); Mean Corpuscular Hemoglobin 30.9 pg (27.0-31.0); Mean Corpuscular Volume 91.3 fL (78.0-98.0); Mean Platelet Volume 7.2 fL (7.4-10.4); Platelet Count 299 thou/uL (130-400); RBC Distribution Width 12.3 % (11.5-14.5); Red Blood Cell (RBC) Count 3.39 mill/uL (4.70-6.10); White Blood Cell (WBC) Count 8.1 thou/uL (4.8-10.8)
[2019-06-11 05:33] LABS: Anion Gap 10 mmol/L (10-20); BUN (Urea Nitrogen) 14 mg/dL (8.4-25.7); Calc. Creatinine Clearance 92 mL/min (70-130); Calcium 8.6 mg/dL (7.8-10.44); Carbon Dioxide 26 mmol/L (23-31); Chloride 92 mmol/L (98-107); Estimated GFR-MDRD Greater than 90; Glucose 91 mg/dL (80-115); Potassium 4.3 mmol/L (3.5-5.1); Sodium 124 mmol/L (136-145)
[2019-06-11] MEDS: Aspirin 81 mg Enteric Coated Tablet PO SCH ×2 (08:17→21:56)
[2019-06-11] MEDS: Thiamine 100 MG TAB PO SCH (08:17)
[2019-06-11] MEDS: Senokot S 8.6-50 MG TAB PO SCH ×2 (08:17→21:56)
[2019-06-11] MEDS: Magnesium Oxide 400 MG TAB PO SCH (08:18)
[2019-06-11] MEDS: Folic Acid 1 MG TAB PO SCH (08:18)
[2019-06-11] MEDS: Ferrous Gluconate 324 MG TAB PO SCH ×2 (08:18→21:56)
[2019-06-11] MEDS: Lisinopril 5 MG TAB PO SCH (08:18)
[2019-06-11] MEDS: Multivitamin W/ Minerals 1 TAB PO SCH ×2 (08:18)
[2019-06-11] MEDS: Lidocaine 5% Patch TD SCH (12:49)
--- NOTE | 2019-06-11 15:02 | PDOC.HOSPP ---
- Subjective Encounter Date: 06/11/19 Encounter Time: 01:00 Subjective: The patient reports severe leg pain while ambulating. He is looking into going to rehab. Per brother, patient had some dizziness while standing that went away after a few seconds. He denies palpitations or chest pain. He denies history of low sodium - Objective Vital Signs & Weight: Vital Signs (12 hours) Temp Pulse Resp BP BP BP BP 06/11/19 11:14 97.7 F 67 17 131/74 06/11/19 08:18 75 112/64 06/11/19 08:15 06/11/19 07:57 97.6 F 75 13 112/64 06/11/19 03:43 97.9 F 69 16 144/88 H Pulse Ox 06/11/19 11:14 96 06/11/19 08:18 06/11/19 08:15 94 L 06/11/19 07:57 94 L 06/11/19 03:43 96 Weight Weight 160 lb I&O: 06/10/19 06/11/19 06/12/19 06:59 06:59 06:59 Intake Total 1800 1260 130 Output Total 3550 925 1475 Balance -1750 335 -1345 Result Diagrams: 06/11/19 04:34 06/11/19 04:34 Hospitalist ROS - Review of Systems Constitutional: denies: fever, chills Cardiovascular: denies: chest pain, palpitations - Medication Medications: Active Medications Generic Name Dose Route Start Last Admin Trade Name Freq PRN Reason Stop Dose Admin Hydrocodone Bitart/Acetaminophen 2 tab 06/07/19 09:30 06/11/19 11:14 [place] 5/325 PO 2 tab Q4H PRN Administration For Moderate Pain 4-6 Aspirin 81 mg 06/07/19 09:00 06/11/19 08:17 Ecotrin PO 81 mg BID PASTOR Administration Ferrous Gluconate 324 mg 06/07/19 09:00 06/11/19 08:18 Fergon PO 324 mg BID PASTOR Administration Folic Acid 1 mg 06/09/19 09:00 06/11/19 08:18 Folvite PO 1 mg DAILY PASTOR Administration Fentanyl Citrate 100 mls @ 4 mls/hr 06/07/19 09:30 06/10/19 16:31 Fentanyl/Bupivacaine EPIDURAL 100 mls INF PASTOR Administration As Directed Ceftriaxone Sodium 2 gm/ 100 mls @ 200 mls/hr 06/07/19 16:00 06/10/19 15:37 Sodium Chloride IVPB 100 mls 1600 PASTOR Administration Iron/Minerals/Multivitamins 1 tab 06/07/19 09:00 06/11/19 08:18 Theragran M PO 1 tab DAILY PASTOR Administration Iron/Minerals/Multivitamins 1 tab 06/09/19 09:00 06/11/19 08:18 Theragran M PO Not Given DAILY PASTOR Lidocaine 1 patch 06/10/19 13:00 06/11/19 12:49 Lidoderm 5% Patch TD 1 patch 1300 PASTOR Administration Lisinopril 5 mg 06/10/19 09:00 06/11/19 08:18 Zestril PO 5 mg DAILY PASTOR Administration Magnesium Oxide 400 mg 06/09/19 09:00 06/11/19 08:18 Magnesium Oxide PO 400 mg DAILY PASTOR Administration Miscellaneous Medication 1 each 06/11/19 01:00 06/11/19 03:05 Lidocaine Patch Removal TOP Not Given 0100 PASTOR Senna/Docusate Sodium 2 tab 06/07/19 09:00 06/11/19 08:17 Senokot S PO 2 tab BID PASTOR Administration Thiamine HCl 100 mg 06/09/19 09:00 06/11/19 08:17 Thiamine PO 100 mg DAILY PASTOR Administration - Exam General Appearance: NAD, awake alert Eye: PERRL, anicteric sclera ENT: normocephalic atraumatic, no oropharyngeal lesions Neck: supple, symmetric, no JVD, no thyromegaly Heart: RRR, no murmur, no gallops, no rubs Respiratory: CTAB, no wheezes, no rales, no ronchi Gastrointestinal: soft, non-tender, non-distended, normal bowel sounds Extremities: no cyanosis, no clubbing, no edema Skin: normal turgor, no lesions, no rashes Neurological: cranial nerve grossly intact, normal sensation to touch, no focal deficits, no new deficit Musculoskeletal: normal tone, normal strength, no muscle wasting Musculoskeletal - other findings: able to lift up left leg more compared to yesterday. 4/5 LLE, 5/5 RLE Psychiatric: normal affect, A&O x 3, oriented to person Hosp A/P (1) CAD (coronary artery disease) Code(s): I25.10 - ATHSCL HEART DISEASE OF [place] CORONARY ARTERY W/O ANG PCTRS Status: Chronic (2) Hypertension Code(s): I10 - ESSENTIAL (PRIMARY) HYPERTENSION Status: Chronic (3) Septic arthritis Status: Acute (4) Failed total hip arthroplasty Code(s): T84.018A - BROKEN INTERNAL JOINT PROSTHESIS, OTHER SITE, INIT ENCNTR; Z96.649 - PRESENCE OF UNSPECIFIED ARTIFICIAL HIP JOINT Status: Acute (5) History of revision of total hip arthroplasty Code(s): Z96.649 - PRESENCE OF UNSPECIFIED ARTIFICIAL HIP JOINT Status: Acute (6) Anemia Code(s): D64.9 - ANEMIA, UNSPECIFIED Status: Acute (7) Hyponatremia Code(s): E87.1 - HYPO-OSMOLALITY AND HYPONATREMIA Status: Acute - Plan This is 69 year old male with failed left hip arthroplasty who is POD 2 for septic arthritis of left hip s/p revision of left hip arthroplasty Septic arthritis s/p revision of left hip arthroplasty - care per orthopedic - PT/OT - on fentanyl BOAT ASSEMBLER, lidocaine patch - added miralax for bowel regimen, continue senna/colace - antibiotics per infectious disease. Currently on IV vancomycin and ceftriaxone. Cultures are negative so far Hyponatremia - sodium down to 124. . Discontinued HCTZ/lisinopril and gave IV fluids with no improvement in sodium, however repeat urine sodium and urine osmolarity shows improvement -may be reset osmostat vs SIADH - will trial of 1200 mL fluid restriction. Repeat BMP in am - TSH normal, am cortisol normal Hypertension - continue lisinopril 5 mg daily Anemia of chronic disease - stable at 10.5. B12, folate, TSH unremarkable - ferritin normal, but low iron sat - he is on folic acid
[2019-06-11] MEDS: cefTRIAXone\\ROCEPHIN 2 GM in Sodium Chloride 0.9% 100 ML IVPB SCH (15:09)
[2019-06-11 16:04] LABS: Anion Gap 12 mmol/L (10-20); BUN (Urea Nitrogen) 19 mg/dL (8.4-25.7); Calc. Creatinine Clearance 81 mL/min (70-130); Calcium 8.5 mg/dL (7.8-10.44); Carbon Dioxide 29 mmol/L (23-31); Chloride 89 mmol/L (98-107); Estimated GFR-MDRD 84; Glucose 116 mg/dL (80-115); Potassium 4.3 mmol/L (3.5-5.1); Sodium 126 mmol/L (136-145)
[2019-06-12] MEDS: HYDROcodone/Acetaminophen 5/325 mg Tablet PO PRN ×3 (02:42→14:23)
[2019-06-12] MEDS: Lidocaine Patch Removal 1 EACH TOP SCH (02:45)
[2019-06-12 05:58] LABS: Hemoglobin 10.3 g/dL (14.0-18.0); Mean Corpuscular HGB CONC 32.6 g/dL (32.0-36.0); Mean Corpuscular Hemoglobin 29.9 pg (27.0-31.0); Mean Corpuscular Volume 91.6 fL (78.0-98.0); Mean Platelet Volume 6.8 fL (7.4-10.4); Platelet Count 344 thou/uL (130-400); RBC Distribution Width 12.4 % (11.5-14.5); Red Blood Cell (RBC) Count 3.43 mill/uL (4.70-6.10); White Blood Cell (WBC) Count 7.9 thou/uL (4.8-10.8)
[2019-06-12] MEDS: Ferrous Gluconate 324 MG TAB PO SCH (07:51)
[2019-06-12] MEDS: Folic Acid 1 MG TAB PO SCH (07:51)
[2019-06-12] MEDS: Lisinopril 5 MG TAB PO SCH (07:52)
[2019-06-12] MEDS: Multivitamin W/ Minerals 1 TAB PO SCH ×2 (07:52)
[2019-06-12] MEDS: Senokot S 8.6-50 MG TAB PO SCH (07:52)
[2019-06-12] MEDS: Magnesium Oxide 400 MG TAB PO SCH (07:53)
[2019-06-12] MEDS: Thiamine 100 MG TAB PO SCH (07:53)
[2019-06-12] MEDS: Aspirin 81 mg Enteric Coated Tablet PO SCH (07:53)
[2019-06-12 11:24] VITALS: BP 147/87; TEMP 97.3
--- NOTE | 2019-06-12 13:05 | PDOC.HOSPP ---
- Subjective Encounter Date: 06/12/19 Encounter Time: 12:00 Subjective: The patient is doing well aside from leg pain. No dizziness or lightheadedness. Has a bed at rehab today per case technician - Objective Vital Signs & Weight: Vital Signs (12 hours) Temp Pulse Resp BP BP BP Pulse Ox 06/12/19 11:23 97.3 F L 62 16 147/87 H 98 06/12/19 08:00 151/77 H 95 06/12/19 07:52 151/77 H 06/12/19 07:36 97.7 F 67 18 151/77 H 95 06/12/19 04:02 97.6 F 70 16 137/81 96 06/12/19 04:00 137/81 Weight Weight 160 lb I&O: 06/11/19 06/12/19 06/13/19 06:59 06:59 06:59 Intake Total 1260 1330 Output Total 925 1630 Balance 335 -300 Result Diagrams: 06/12/19 05:50 06/11/19 15:24 Hospitalist ROS - Review of Systems Constitutional: denies: fever, chills ENT: denies: mouth pain Respiratory: denies: cough, dry - Medication Medications: Active Medications Generic Name Dose Route Start Last Admin Trade Name Freq PRN Reason Stop Dose Admin Hydrocodone Bitart/Acetaminophen 2 tab 06/07/19 09:30 06/12/19 07:54 [place] 5/325 PO 2 tab Q4H PRN Administration For Moderate Pain 4-6 Aspirin 81 mg 06/07/19 09:00 06/12/19 07:53 Ecotrin PO 81 mg BID PASTOR Administration Ferrous Gluconate 324 mg 06/07/19 09:00 06/12/19 07:51 Fergon PO 324 mg BID PASTOR Administration Folic Acid 1 mg 06/09/19 09:00 06/12/19 07:51 Folvite PO 1 mg DAILY PASTOR Administration Fentanyl Citrate 100 mls @ 4 mls/hr 06/07/19 09:30 06/10/19 16:31 Fentanyl/Bupivacaine EPIDURAL 100 mls INF PASTOR Administration As Directed Ceftriaxone Sodium 2 gm/ 100 mls @ 200 mls/hr 06/07/19 16:00 06/11/19 15:09 Sodium Chloride IVPB 100 mls 1600 PASTOR Administration Iron/Minerals/Multivitamins 1 tab 06/07/19 09:00 06/12/19 07:52 Theragran M PO 1 tab DAILY PASTOR Administration Iron/Minerals/Multivitamins 1 tab 06/09/19 09:00 06/12/19 07:52 Theragran M PO Not Given DAILY PASTOR Lidocaine 1 patch 06/10/19 13:00 06/11/19 12:49 Lidoderm 5% Patch TD 1 patch 1300 PASTOR Administration Lisinopril 5 mg 06/10/19 09:00 06/12/19 07:52 Zestril PO 5 mg DAILY PASTOR Administration Magnesium Oxide 400 mg 06/09/19 09:00 06/12/19 07:53 Magnesium Oxide PO 400 mg DAILY PASTOR Administration Miscellaneous Medication 1 each 06/11/19 01:00 06/12/19 02:45 Lidocaine Patch Removal TOP Not Given 0100 PASTOR Senna/Docusate Sodium 2 tab 06/07/19 09:00 06/12/19 07:52 Senokot S PO 2 tab BID PASTOR Administration Thiamine HCl 100 mg 06/09/19 09:00 06/12/19 07:53 Thiamine PO 100 mg DAILY PASTOR Administration - Exam General Appearance: NAD, awake alert Eye: PERRL, anicteric sclera ENT: normocephalic atraumatic, no oropharyngeal lesions Neck: supple, symmetric, no JVD, no thyromegaly Heart: RRR, no murmur, no gallops, no rubs Respiratory: CTAB, no wheezes, no rales, no ronchi Gastrointestinal: soft, non-tender, non-distended Extremities - other findings: 5/5 strength in LLE and RLE with plantarflexion. Dec ROM LLE Skin: normal turgor, no lesions, no rashes Hosp A/P (1) CAD (coronary artery disease) Code(s): I25.10 - ATHSCL HEART DISEASE OF [place] CORONARY ARTERY W/O ANG PCTRS Status: Chronic (2) Hypertension Code(s): I10 - ESSENTIAL (PRIMARY) HYPERTENSION Status: Chronic (3) Septic arthritis Status: Acute (4) Failed total hip arthroplasty Code(s): T84.018A - BROKEN INTERNAL JOINT PROSTHESIS, OTHER SITE, INIT ENCNTR; Z96.649 - PRESENCE OF UNSPECIFIED ARTIFICIAL HIP JOINT Status: Acute (5) History of revision of total hip arthroplasty Code(s): Z96.649 - PRESENCE OF UNSPECIFIED ARTIFICIAL HIP JOINT Status: Acute (6) Anemia Code(s): D64.9 - ANEMIA, UNSPECIFIED Status: Acute (7) Hyponatremia Code(s): E87.1 - HYPO-OSMOLALITY AND HYPONATREMIA Status: Acute - Plan This is 69 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 Currently on IV vancomycin and ceftriaxone for 6 week, then doxycycline after. 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 B12, folate, TSH unremarkable - ferritin normal, but low iron sat - he is on folic acid Dispo: okay to d/c from my standpoint with repeat BMP as an outpatient. Will sign off
[2019-06-12] MEDS: Lidocaine 5% Patch TD SCH (14:24)
== END 2019-06-12 14:30 | disposition swing bed (61) | DRG 467 ==
LOC: SJJU 06-07 06:40 → SURG B 06-07 13:34
PROVIDERS: ADMIT Orthopaedic Surgery; ATTEND Orthopaedic Surgery
PROC: 0SRB049 Replacement of Left Hip Joint with Ceramic on Polyethylene Synthetic Substitute, Cemented, Open Approach (ICD-10-PCS; principal; 2019-06-07)
PROC: 0SPB0JZ Removal of Synthetic Substitute from Left Hip Joint, Open Approach (ICD-10-PCS; 2019-06-07)
DX: T84.031A Mechanical loosening of internal left hip prosthetic joint, initial encounter (principal); E87.1 Hypo-osmolality and hyponatremia; M00.9 Pyogenic arthritis, unspecified; I25.10 Atherosclerotic heart disease of native coronary artery without angina pectoris; I10 Essential (primary) hypertension; Y83.1 Surgical operation with implant of artificial internal device as the cause of abnormal reaction of the patient, or of later complication, without mention of misadventure at the time of the procedure; T84.52XA Infection and inflammatory reaction due to internal left hip prosthesis, initial encounter; F17.210 Nicotine dependence, cigarettes, uncomplicated; Z79.899 Other long term (current) drug therapy
CPT/HCPCS: 36415; 36569; 80048; 80202; 81001; 82533; 82607; 82728; 82746; 83540; 83550; 83930; 83935; 84300; 84443; 85025; 85027; 85610; 87070; 87081; 87205; 93005; C1713; C1751; C1769; C1776; J0690; J0696; J1100; J1170; J1644; J1885; J2001; J2405; J2550; J2704; J2795; J3010; J3260; J3370; J3490

== ENCOUNTER 2020-01-29 10:30 | Inpatient (IN) | payer MEDICARE ==
[2020-02-07] MEDS ORDERED: Tranexamic Acid 1,000 MG/10 ML VIAL ONE (07:39)
[2020-02-07] MEDS ORDERED: Vancomycin 1 GM/200 ML BAG ONE (07:39)
[2020-02-07] MEDS ORDERED: Sodium Chloride 0.9% 100 ML ONE (07:39)
[2020-02-07] MEDS ORDERED: Midazolam HCl 2 mg/2 ml Vial ONE (08:33)
[2020-02-07] MEDS ORDERED: Fentanyl 100 MCG/2 ML VIAL ONE ×2 (08:33→10:11)
[2020-02-07] MEDS ORDERED: Fentanyl 100 MCG/2 ML VIAL IV PRN (09:13)
[2020-02-07] MEDS ORDERED: traMADol HCl 50 MG TAB PO PRN ×2 (09:15)
[2020-02-07] MEDS ORDERED: HYDROcodone/Acetaminophen 10/325 mg Tablet PO PRN ×2 (09:15)
[2020-02-07] MEDS ORDERED: Ondansetron PF 4 MG/2 ML Vial IVP PRN (09:15)
[2020-02-07] MEDS ORDERED: Zolpidem Tartrate 5 MG TAB PO PRN (09:15)
[2020-02-07] MEDS ORDERED: Promethazine HCl 25 MG/ML VIAL IM PRN ×2 (09:15→11:01)
[2020-02-07] MEDS ORDERED: Ropivacaine 0.2% 550 ML 550 ML NERVE BLCK SCH (09:15)
[2020-02-07] MEDS ORDERED: EPHEDRINE 25 MG/5 ML SYRINGE ONE (10:15)
[2020-02-07] MEDS ORDERED: Ropivacaine 0.5% HCl/PF (150 MG/30 ML VIAL) ONE (10:15)
[2020-02-07] MEDS ORDERED: PROPOFOL 200 MG/20 ML VIAL ONE (10:15)
[2020-02-07] MEDS ORDERED: Rocuronium Bromide 10 MG/ML (10ML VIAL) ONE (10:15)
[2020-02-07] MEDS ORDERED: Lidocaine 1% PF 5 ML VIAL ONE (10:15)
[2020-02-07] MEDS ORDERED: Ondansetron PF 4 MG/2 ML Vial ONE (10:15)
[2020-02-07] MEDS ORDERED: Glycopyrrolate 0.2 MG/ML 5 ML SYRINGE ONE (10:15)
[2020-02-07] MEDS ORDERED: PHENYLEPHRINE-NS 100 MCG/ML 10 ML SYRINGE ONE (10:15)
[2020-02-07] MEDS ORDERED: Ropivacaine 0.2% HCl/PF (40 MG/20 ML VIAL) ONE (10:15)
[2020-02-07] MEDS ORDERED: Dexamethasone 20 MG/5 ML VIAL ONE (10:15)
[2020-02-07] MEDS ORDERED: Promethazine HCl 25 MG/ML VIAL SLOW IVP PRN (11:01)
[2020-02-07] MEDS ORDERED: PACU-Morphine 4MG/ML VIAL SLOW IVP PRN (11:01)
[2020-02-07] MEDS ORDERED: Aspirin 81 mg Enteric Coated Tablet PO SCH (12:30)
[2020-02-07] MEDS: Dextrose 5 %-0.45 % NaCl 1,000 ML IV SCH (14:01)
[2020-02-07] MEDS: Ketorolac Tromethamine 30 MG/ML VIAL IVP SCH ×3 (14:02→23:05)
--- NOTE | 2020-02-07 17:37 | OP ---
DATE OF PROCEDURE: 02/07/2020 TITLE OF PROCEDURE: Right reverse total shoulder arthroplasty without biceps tenodesis. ENVIRONMENTAL REMEDIATION ENGINEER: Beba Beauchamp PA-C. BLOOD LOSS: 200. SPECIMEN: None. DRAINS: None. COMPLICATIONS: None. IMPLANTS USED: Kinetic Social Tornier baseplate 29 full-wedge with a 6.5 x 24 mm central screw, 39 sphere, Flex 6A stem, tray 0 mm high offset with polys +6. The surgical pathologist was integral in positioning and retracting, assisting in cuts and tightening screws implants were held in place. Job ID: [id number]
[2020-02-07] MEDS: CEFAZOLIN 2 GM in Premix Bag 1 BAG IVPB SCH (17:39)
[2020-02-08] MEDS: CEFAZOLIN 2 GM in Premix Bag 1 BAG IVPB SCH (01:25)
[2020-02-08] MEDS: Ketorolac Tromethamine 30 MG/ML VIAL IVP SCH ×2 (05:14→11:57)
[2020-02-08] MEDS: Dextrose 5 %-0.45 % NaCl 1,000 ML IV SCH (05:15)
[2020-02-08] MEDS ORDERED: Lisinopril 10 MG TAB PO SCH (09:00)
[2020-02-08 12:03] VITALS: BP 107/62; TEMP 97.4
== END 2020-02-08 12:43 | disposition home or self-care (01) | DRG 483 ==
LOC: SURG A 02-07 07:24
PROVIDERS: ADMIT Orthopaedic Surgery; ATTEND Orthopaedic Surgery
PROC: 0RRJ00Z Replacement of Right Shoulder Joint with Reverse Ball and Socket Synthetic Substitute, Open Approach (ICD-10-PCS; principal; 2020-02-07)
PROC: 0LS30ZZ Reposition Right Upper Arm Tendon, Open Approach (ICD-10-PCS; 2020-02-07)
DX: M19.011 Primary osteoarthritis, right shoulder (principal); I10 Essential (primary) hypertension; F17.210 Nicotine dependence, cigarettes, uncomplicated; Z11.59 Encounter for screening for other viral diseases; Z79.899 Other long term (current) drug therapy
CPT/HCPCS: 80048; 85025; 87635; 93005; A4306; J0690; J1100; J1885; J2250; J2405; J2704; J2795; J3010; J3370; J3490; U0003

== ENCOUNTER 2020-02-05 07:07 | Outpatient (CLI) | payer MEDICARE, OTHER ==
[2020-02-05 11:03] LABS: #Basophils 0.1 thou/uL (0.0-0.2); #Eosinphils 0.1 thou/uL (0.0-0.7); #Lymphocytes 2.1 thou/uL (1.20-3.40); #Monocytes 0.8 thou/uL (0.11-0.59); #Neutrophils 5.4 thou/uL (1.40-6.50); %Basophils 0.8 % (0.0-1.0); %Eosinophils 0.9 % (0.0-10.0); %Lymphocytes 24.9 % (21.0-51.0); %Monocytes 9.2 % (0.0-10.0); %Neutrophils 64.2 % (42.0-75.0); Mean Corpuscular Hemoglobin 30.3 pg (27.0-31.0); Mean Corpuscular Volume 94.7 fL (78.0-98.0); Mean Platelet Volume 7.7 fL (7.4-10.4); Platelet Count 303 thou/uL (130-400); Red Blood Cell (RBC) Count 4.28 mill/uL (4.70-6.10); White Blood Cell (WBC) Count 8.4 thou/uL (4.8-10.8)
[2020-02-05 11:26] LABS: Anion Gap 16 mmol/L (10-20); BUN (Urea Nitrogen) 18 mg/dL (8.4-25.7); Calc. Creatinine Clearance 0 mL/min (70-130); Calcium 9.7 mg/dL (7.8-10.44); Carbon Dioxide 24 mmol/L (23-31); Chloride 96 mmol/L (98-107); Estimated GFR-MDRD 57; Glucose 110 mg/dL (80-115); Potassium 5.6 mmol/L (3.5-5.1); Sodium 130 mmol/L (136-145)
[2020-02-05 16:42] LABS: SARS-CoV-2 MS2 Positive; SARS-CoV-2 N Gene Negative; SARS-CoV-2 S Gene Negative; SARS-CoV-2 by NAA Not Detected (NotDetected); SARS-CoV-2 orf1ab Negative
--- NOTE | 2020-02-06 10:23 | EKG ---
Test Reason : PREOP Blood Pressure : / mmHG Vent. Rate : 066 BPM Atrial Rate : 066 BPM P-R Int : 190 ms QRS Dur : 144 ms QT Int : 456 ms P-R-T Axes : 081 082 093 degrees QTc Int : 478 ms Normal sinus rhythm Left bundle branch block Abnormal ECG No previous ECGs available Confirmed by FARAZ REY M.D. ([id number] on 02/06/2020 10:23:26 AM Referred By: Cole RODRIGUEZ Confirmed By:FARAZ REY M.D.
== END 2020-02-05 07:08 | disposition home or self-care (01) ==
LOC: LABBT 07:07
PROVIDERS: ATTEND Orthopaedic Surgery
DX: Z01.818 Encounter for other preprocedural examination (principal); Z20.828 Contact with and (suspected) exposure to other viral communicable diseases; M19.011 Primary osteoarthritis, right shoulder
CPT/HCPCS: 80048; 85025; 93005; U0003; 87635; 93010

== ENCOUNTER 2021-10-09 10:15 | Emergency (ER) | payer MEDICARE | END 2021-10-09 10:50 | LOC: ERS 10:15 | DX: Z53.21 Procedure and treatment not carried out due to patient leaving prior to being seen by health care provider (principal) ==